=== PATIENT | female | born 1975 | race Caucasian/White ===

== ENCOUNTER → 2018-08-01 | Outpatient (CLI) | payer OTHER ==
--- NOTE | 2018-08-01 13:18 | RAD ---
EXAM DESCRIPTION: Thoracic Spine,AP Lateral CLINICAL HISTORY: 43 years Female, BACK PAIN COMPARISON: None. TECHNIQUE: AP and lateral views of the thoracic spine were obtained. FINDINGS: Dextroscoliosis of the thoracic spine is noted. There is multilevel degenerative disc disease. The vertebral body heights are well-maintained. IMPRESSION: Dextroscoliosis of the thoracic spine with multilevel degenerative disc disease. Electronically signed by: Delmis Modi MD 08/01/2018 1:17 PM [facility]
== END ==
LOC: RAD 11:57
PROVIDERS: ATTEND Nurse Practitioner Family
DX: M51.34 Other intervertebral disc degeneration, thoracic region (principal); M41.84 Other forms of scoliosis, thoracic region

== ENCOUNTER → 2018-08-14 | Outpatient (CLI) | payer OTHER | LOC: LAB.O 12:18 | PROVIDERS: ATTEND Nurse Practitioner Family | DX: R00.0 Tachycardia, unspecified (principal) ==

== ENCOUNTER → 2018-10-01 | Outpatient (CLI) | payer OTHER ==
--- NOTE | 2018-10-01 17:09 | RAD ---
EXAM DESCRIPTION: Cervical Spine,3 Views CLINICAL HISTORY: 43 years Female, SCOLIOSIS COMPARISON: None. FINDINGS: Straightening of the normal lordotic curvature is noted. The vertebral body heights are well-maintained with no acute compression deformity. Intervertebral disc spaces are preserved. No evidence of subluxation. IMPRESSION: Normal radiographs of the cervical spine. Electronically signed by: Marc Rodriguez MD 10/01/2018 5:06 PM [facility]
--- NOTE | 2018-10-01 17:11 | RAD ---
EXAM DESCRIPTION: Lumbar Spine 5 Views CLINICAL HISTORY: 43 years Female, SCOLIOSIS COMPARISON: None. FINDINGS: Straightening of the normal lordotic curvature of the lumbar spine is noted. The vertebral body heights are well-maintained. There is multilevel facet arthropathy, worse at L5-S1 level. No evidence of spondylolysis or spondylolisthesis. IMPRESSION: No evidence of scoliosis. Mild multilevel facet arthropathy is noted throughout the lumbar spine. Electronically signed by: Marc Rodriguez MD 10/01/2018 5:07 PM [facility]
--- NOTE | 2018-10-01 17:11 | RAD ---
EXAM DESCRIPTION: Thoracic Spine,AP Lateral CLINICAL HISTORY: 43 years Female, SCOLIOSIS COMPARISON: None. FINDINGS: Dextroscoliosis of the thoracic spine is identified. There is multilevel degenerative disc disease. The vertebral body heights are well-maintained without compression deformity. No evidence of subluxation. IMPRESSION: Dextroscoliosis of the thoracic spine. Electronically signed by: Marc Rodriguez MD 10/01/2018 5:08 PM [facility]
== END ==
LOC: RAD 11:48
PROVIDERS: ATTEND Nurse Practitioner Family
DX: M41.20 Other idiopathic scoliosis, site unspecified (principal); M12.88 Other specific arthropathies, not elsewhere classified, other specified site

== ENCOUNTER → 2019-03-03 | Outpatient (CLI) | payer OTHER ==
--- NOTE | 2019-03-03 17:04 | RAD ---
EXAM DESCRIPTION: Hand,Right 2 Views CLINICAL HISTORY: PAIN IN RIGHT HAND COMPARISON: None. TECHNIQUE: 2 views left FINDINGS: I see no bone joint or soft tissue abnormality. IMPRESSION: Normal two-view right hand Electronically signed by: Dileep Coronado MD 03/03/2019 5:03 PM CDT
== END ==
LOC: RAD 16:18
PROVIDERS: ATTEND Nurse Practitioner Family
DX: M79.641 Pain in right hand (principal)

== ENCOUNTER → 2019-08-11 | Outpatient (CLI) | payer OTHER | LOC: LAB.O 16:04 | PROVIDERS: ATTEND Nurse Practitioner Family | DX: E86.0 Dehydration (principal) ==

== ENCOUNTER → 2019-09-11 | Outpatient (CLI) | payer OTHER ==
--- NOTE | 2019-09-11 15:22 | US ---
EXAM DESCRIPTION: Abdomen,Complete: Ultrasound. CLINICAL HISTORY: 44 years FemaleEPIGASTRIC PAIN COMPARISON: None Available. TECHNIQUE: Transabdominal scanning: grayscale and Doppler modes. Limited resolution due to thickness of the anterior abdominal subcutaneous tissue. FINDINGS: Gallbladder: Normal echogenicity with no intraluminal stones or sludge. Wall thickening 2.9 mm with no fluid. Nontender with transducer pressure. Common bile duct: 5.2 mm normal caliber. Liver: Long axis right lobe 16.4 cm. Normal echogenicity. Physiologic vascularity. Intrahepatic ducts not dilated. Smooth capsule with no ascites and no focal lesions. Pancreas: Normal size and echogenicity. Duct not seen.. Abdominal aorta: Normal caliber from the proximal segment to the distal bifurcation. IVC: visualized; normal caliber. Spleen normal echogenicity; long axis measurement is 13.3 cm. Right kidney: 10 cm Long axis with cortical thickness 11 mm. Normal cortical echogenicity. No echogenic stones and no hydronephrosis. Left kidney: 8.9 cm long axis with normal cortical echogenicity. 10 mm cortical thickness. No echogenic stones or hydronephrosis. IMPRESSION: 1. Normal findings in the gallbladder, common bile duct, liver, pancreas, and spleen. Normal caliber of the aorta. No ascites. 2. Bilateral cortical thinning in the kidneys with normal cortical echogenicity and otherwise unremarkable. Correlate with renal function tests. Electronically signed by: Vinicio Snell MD 09/11/2019 3:21 PM [facility]
== END ==
LOC: LAB.O 14:14
PROVIDERS: ATTEND Nurse Practitioner Family
DX: R10.13 Epigastric pain (principal); N28.9 Disorder of kidney and ureter, unspecified

== ENCOUNTER → 2019-09-15 | Outpatient (CLI) | payer OTHER | LOC: LAB.O 13:44 | PROVIDERS: ATTEND Registered Nurse General Practice | DX: R19.7 Diarrhea, unspecified (principal) ==

== ENCOUNTER → 2020-03-30 | Outpatient (CLI) | payer OTHER ==
--- NOTE | 2020-03-31 19:34 | MAM ---
EXAM DESCRIPTION: 3D Screening BILATERAL : Digital Mammography. CLINICAL HISTORY: 44 years Female . SCREENING. No complaints. No family history of breast cancer. Menarche age 15. No childbirth. Premenopausal. No HRT Lifetime risk of developing breast cancer (Tyrer-Cuzick model)(%): 10.9. COMPARISON: Baseline study at this facility.. No prior reports available. TECHNIQUE: Bilateral CC and MLO projection full-field images, digital tomosynthesis mammographic technique. Bilateral digital 2-D full-field MLO images. CAD available for 2-D images. FINDINGS: The breast parenchymal density pattern is: Almost entirely fatty. No skin thickening or nipple retraction. Bilateral skin calcifications and solitary microcalcifications No focal, stellate mass or density, focal asymmetry , and no suspicious microcalcifications bilaterally. IMPRESSION: Benign exam. BIRAD CATEGORY: 2 BENIGN FINDINGS. RECOMMENDATIONS: FOLLOW UP: Routine digital bilateral mammographic screening, one year interval from March 2020. Written communication explaining the IMPRESSION and follow-up, will be mailed to the patient and referring health care provider. According to the [employer], yearly mammograms are recommended starting at age 40 and continuing as long as a woman is in good health. Any breast change noted on a breast self-exam should be reported promptly to the patient's healthcare provider. Breast MRI is recommended for women with an approximately 20-25% or greater lifetime risk of breast cancer, including women with a strong family history of breast or ovarian cancer and women who have been treated for Hodgkin's disease. A negative mammographic report should not delay tissue diagnosis in patients with significant clinical history or physical findings. Extremely dense breast tissue limits the sensitivity of digital mammography. Electronically signed by: Vinicio Snell MD 03/31/2020 7:33 PM CDT
== END | disposition home or self-care (01) ==
LOC: MAMMO 15:12
PROVIDERS: ATTEND Nurse Practitioner Family
DX: Z12.31 Encounter for screening mammogram for malignant neoplasm of breast (principal)